=== PATIENT | female | born 1990 | race African-American/Black ===

== ENCOUNTER 2021-03-20 15:14 | Emergency (ER) | payer OTHER ==
[~2021-03-20] VITALS: Ht 162.6 cm; Wt 118.6 kg
[~2021-03-20 15:14] MED LIST: AMOX500C2 PO; IBUP-2070 PO
[2021-03-20 15:18] VITALS: BP 115/67
[2021-03-20] MEDS ORDERED: PERTUSS(ACELL),DIPH,TET VAC/PF 0.5 ML SYRINGE IM. ONE (16:00)
== END 2021-03-20 16:21 | disposition home or self-care (01) ==
LOC: EMS 15:18
DX: S81.852A Open bite, left lower leg, initial encounter (principal); Z79.899 Other long term (current) drug therapy; W54.0XXA Bitten by dog, initial encounter; Y93.89 Activity, other specified; Y92.89 Other specified places as the place of occurrence of the external cause; Y99.8 Other external cause status
CPT/HCPCS: 90471; 90715; 99283